=== PATIENT | female | born 1990 | race Two or more races ===

== ENCOUNTER 2018-03-20 10:16 | Emergency (ER) | payer SELFPAY ==
[~2018-03-20] VITALS: Ht 177.8 cm; Wt 63.5 kg
[2018-03-20] MEDS ORDERED: ACETAMINOPHEN 325 MG TABLET ONE (10:26)
[2018-03-20] MEDS: ACETAMINOPHEN 325 MG TABLET PO ONE (10:27)
== END 2018-03-20 10:31 | disposition home or self-care (01) ==
LOC: ER 10:17
DX: S09.8XXA Other specified injuries of head, initial encounter (principal); Z88.0 Allergy status to penicillin; V49.59XA Passenger injured in collision with other motor vehicles in traffic accident, initial encounter; Y93.89 Activity, other specified; Y92.413 State road as the place of occurrence of the external cause; Y99.8 Other external cause status
CPT/HCPCS: 99283; A4606